=== PATIENT | female | born 1975 | race American Indian/Alaskan Native ===

== ENCOUNTER 2016-11-06 17:36 | Emergency (ER) | payer OTHER ==
[2016-11-06 18:52] LABS: Alanine Aminotransferase 10 units/L (7-56); Albumin 3.8 g/dL (3.9-5); Albumin/Globulin Ratio 1.2 %; Alkaline Phosphatase 76 units/L (35-129); Anion Gap 19 mmol/L; Blood Urea Nitrogen 10 mg/dL (7-17); Calcium 8.6 mg/dL (8.4-10.2); Carbon Dioxide 22 mmol/L (22-30); Chloride 102.6 mmol/L (98-107); Glucose 91 mg/dL (65-100); Lipase 21 units/L (13-60); Sodium 140 mmol/L (137-145); Total Protein 6.9 g/dL (6.3-8.2)
[2016-11-06 18:54] LABS: Basophils % (Auto) 0.4 % (0.0-1.8); Eosinophils % (Auto) 1.8 % (0.0-4.3); Hematocrit 37.9 % (30.3-42.9); Mean Corpuscular HGB Conc 32 % (30-34); Mean Corpuscular Hemoglobin 28 pg (28-32); Mean Corpuscular Volume 89 fl (79-97); Platelet Count 250 K/mm3 (140-440); Red Blood Count 4.28 M/mm3 (3.65-5.03); Red Cell Distribution Width 13.6 % (13.2-15.2); White Blood Count 10.6 K/mm3 (4.5-11.0)
[2016-11-07 00:13] LABS: Bacteria,Urine 1+ /HPF (Negative); Bilirubin,Urine NEG (Negative); Blood,Urine SM (Negative); Ketones,Urine NEG (Negative); Leukocyte Esterase,Urine NEG (Negative); Mucus,Urine 1+ /HPF; Nitrite,Urine NEG (Negative); Protein,Urine <15 mg/dL mg/dL (Negative); Urobilinogen,Urine < 2.0 mg/dL (<2.0)
[2016-11-07 00:19] VITALS: BP 147/101
--- NOTE | 2016-11-27 15:18 | ED Elopement Review ---
ED Pt Elopement review - Results review Lab results: Laboratory Tests 11/06/16 11/06/16 11/06/16 18:22 18:22 18:22 WBC 10.6 RBC 4.28 Hgb 12.0 Hct 37.9 MCV 89 MCH 28 MCHC 32 RDW 13.6 Plt Count 250 Lymph % (Auto) 29.6 [place] % (Auto) 6.1 Eos % (Auto) 1.8 Baso % (Auto) 0.4 Lymph # 3.1 [place] # 0.6 Eos # 0.2 Baso # 0.0 Seg Neutrophils % 62.1 Seg Neutrophils # 6.6 Sodium 140 Potassium 4.0 Chloride 102.6 Carbon Dioxide 22 Anion Gap 19 BUN 10 Creatinine 0.8 Estimated GFR > 60 BUN/Creatinine Ratio 12.50 Glucose 91 Calcium 8.6 Total Bilirubin 0.20 AST 13 ALT 10 Alkaline Phosphatase 76 Total Protein 6.9 Albumin 3.8 L Albumin/Globulin Ratio 1.2 Lipase 21 HCG, Qual Negative Urine Color Urine Turbidity Urine pH Ur Specific [place] Urine Protein Urine Glucose (UA) Urine Ketones Urine Blood Urine Nitrite Urine Bilirubin Urine Urobilinogen Ur Leukocyte Esterase Urine WBC (Auto) Urine RBC (Auto) U Epithel Cells (Auto) Urine Bacteria (Auto) Calcium Oxalate Crystal Urine Mucus 11/06/16 Unknown WBC RBC Hgb Hct MCV MCH MCHC RDW Plt Count Lymph % (Auto) [place] % (Auto) Eos % (Auto) Baso % (Auto) Lymph # [place] # Eos # Baso # Seg Neutrophils % Seg Neutrophils # Sodium Potassium Chloride Carbon Dioxide Anion Gap BUN Creatinine Estimated GFR BUN/Creatinine Ratio Glucose Calcium Total Bilirubin AST ALT Alkaline Phosphatase Total Protein Albumin Albumin/Globulin Ratio Lipase HCG, Qual Urine Color Yellow Urine Turbidity Clear Urine pH 5.0 Ur Specific [place] 1.025 Urine Protein <15 mg/dl Urine Glucose (UA) Neg Urine Ketones Neg Urine Blood Sm Urine Nitrite Neg Urine Bilirubin Neg Urine Urobilinogen < 2.0 Ur Leukocyte Esterase Neg Urine WBC (Auto) 1.0 Urine RBC (Auto) 2.0 U Epithel Cells (Auto) 4.0 Urine Bacteria (Auto) 1+ Calcium Oxalate Crystal 1+ Urine Mucus 1+ - Call Back decision Pt Call Back Decision: Pt to F/U with PMD
== END 2016-11-07 03:13 | disposition left against medical advice (07) ==
LOC: ED 17:36
DX: R10.30 Lower abdominal pain, unspecified (principal); R51 Headache; I10 Essential (primary) hypertension; Z53.21 Procedure and treatment not carried out due to patient leaving prior to being seen by health care provider
CPT/HCPCS: 36415; 80053; 81001; 83690; 84703; 85025